=== PATIENT | female | born 1995 | race Hispanic/Latino ===

== ENCOUNTER 2017-01-11 15:05 | Observation (INO) | payer OTHER ==
[2017-01-11] MEDS ORDERED: Ondansetron HCl/PF 4 MG/2 ML Vial IVP PRN (18:56)
[2017-01-11] MEDS ORDERED: Acetaminophen 500 MG TAB PO PRN (18:56)
[2017-01-11] MEDS ORDERED: Promethazine HCl 25 MG/ML VIAL IM PRN (18:56)
[2017-01-11] MEDS ORDERED: Docusate 100 MG CAP PO PRN (18:56)
[2017-01-11 19:39] LABS: #Basophils 0.1 thou/uL (0.0-0.2); #Eosinphils 0.1 thou/uL (0.0-0.7); #Lymphocytes 2.3 thou/uL (1.20-3.40); #Monocytes 0.4 thou/uL (0.11-0.59); #Neutrophils 5.9 thou/uL (1.40-6.50); %Basophils 0.6 % (0.0-1.0); %Eosinophils 1.7 % (0.0-10.0); %Lymphocytes 25.9 % (21.0-51.0); %Monocytes 4.7 % (0.0-10.0); Hematocrit 36.7 % (36.0-47.0); Red Blood Cell (RBC) Count 4.24 mill/uL (4.20-5.40); White Blood Cell (WBC) Count 8.8 thou/uL (4.8-10.8)
--- NOTE | 2017-01-11 19:40 | PDOC.LDHP ---
Labor and Delivery H&P Chief complaint: other (elevated blood pressure and persistently elevated fasting blood sugar, chronic htn, concern for preeclampsia) HPI: 21 @ 21.4 presents as a direct admit from clinic after being noted to have elevated pressures in clinic. She also has a h/o elevated blood sugars during and has been medication no-compliant. Likely pre- gestational diabetic. She denies any complications with this thus far and reports good movement. She denies headache, abdominal pain, decreased urinary op, changes in vision. Denies any other pmh. Family history is positive for DMII on mother's side. NKDA. Current gestational age (weeks): 21 Grav: 3 Para: 1 OB History Details: 1 previous cs 2/2 failure to progress Current complications: pregestational diabetes, hypertension, other Current medications: none Previous surgical history: low tranverse CS - Physical Exam General: NAD, resting Heart: RRR Lungs: nonlabored breathing Abdomen: gravid (Approx 5cm above umbilicus) Extremeties: trace edema - Assessment -chronic uncontrolled htn -pregestational diabetes -obesity -medication non-compliance - Plan Plan: other -: admit to for obs vital checks q4h start medications as indicated accuchecks QACHS diabetic diet r/o preeclampsia: cmp, cbc, 24 hr urine protein, urine protein/creatinine ratio , uric acid <Mac Larsen - Last Filed: 01/11/17 19:31> <Deedee Rice - Last Filed: 01/12/17 00:00> Allergies/Adverse Reactions: Allergies Allergy/AdvReac Type Severity Reaction Status Date / Time No Known Drug Allergies Allergy Verified 01/11/17 20:54 Attending Addendum - Attending Addendum I personally evaluated the patient and discussed the management with Dr. Larsen on 01/11/17. I agree with the History, Examination, Assessment and Plan documented above with any addition or exceptions noted below. Patient's BPs now 120s/80s. Has not met criteria for needing labetalol yet. Inital labs normal, with exception of mild hypokalemia. Will replete PO. 24 hour urine pending. May consider starting ASA. In addition, tonight's 2hPP glucose is 154, which is significantly elevated. If they remain elevated, may need to consider adding Metformin or Glipizide. <Deedee Rice - Last Filed: 01/12/17 00:00>
[2017-01-11 20:04] LABS: ALT (SGPT) 21 U/L (8-55); AST (SGOT) 17 U/L (5-34); Alkaline Phosphatase 93 U/L (40-150); Anion Gap 12 mmol/L (10-20); BUN (Urea Nitrogen) 7 mg/dL (7.0-18.7); Bilirubin, Total Less than 0.2 mg/dL (0.2-1.2); Calc. Creatinine Clearance 0 mL/min (70-130); Carbon Dioxide 22 mmol/L (22-29); Chloride 106 mmol/L (98-107); Estimated GFR-MDRD Greater than 90; Globulin 3.6 g/dL (2.4-3.5); Protein, Total 7.2 g/dL (6.0-8.3)
[2017-01-11] MEDS ORDERED: Potassium Chloride 20 MEQ TAB PO SCH (20:45)
[2017-01-11 20:53] VITALS: BMI 42.5
[2017-01-11 21:21] LABS: Bilirubin Negative (Negative); Blood, Urine Negative (Negative); Glucose, Urine (Dipstick) Negative (Negative); Ketone, Urine Negative (Negative); Nitrite Negative (Negative); Protein, Urine (Dipstick) Negative (Neg-Trace)
[2017-01-11 21:23] LABS: Bacteria/HPF None Seen HPF (None Seen); Hyaline Casts/LPF 0-3 HYALINE CAST LPF (0-3 Hyaline); RBC/HPF 0-3 HPF (0-3); Squamous Epithelial 0-3 HPF (0-3); WBC/HPF 0-3 HPF (0-3)
--- NOTE | 2017-01-12 06:10 | PDOC.LDPN ---
Labor & Delivery Progress Note - Subjective Subjective: other (21 @ 21.4 presents as a direct admit from clinic after being noted to have elevated pressures in clinic. She also has a h/ o elevated blood sugars during and has been medication no-compliant. Complications: Gestational Hypertension. Diabetes? Denies any other pmh. Family history is positive for DMII on mother's side. NKDA.) - Objective Vital signs reviewed and normal: yes General: NAD, resting Other exam findings: RRR, no murmurs/rubs/gallops; CTAB, no wheezing; soft nontender no dist - Assessment (1) Hypertension affecting Code(s): O16.9 - UNSPECIFIED MATERNAL HYPERTENSION, UNSPECIFIED TRIMESTER Current Visit: Yes Status: Acute (2) Pre-diabetes Code(s): R73.03 - PREDIABETES Current Visit: Yes Status: Acute -: @ 21.4wk with chronic hypertension not on medication and with prediabetes presented to [facility] with systolic bp in the 160s, and protien in urine, also with noncompliance of checking blood glucose at home, admitted here for PreEclampsia workup and further management of pt's hypertension and prediabetes. 1.)Chronic Hypertension, with concern for superimposed PreEclampsia, with controlled normal pressures overnight without requiring medication: 24hr urine protein pending Urine protein/cr: .07 Pt's platelets and LFTs are wnl No complaint of headache Advised pt to take a baby aspirin daily 2.)Prediabetes- Ordered fasting blood glucose and 2 hour post prandial blood glucose checks Advised pt to check blood glucose at home at these times Will consider metformen if pt's blood glucose persistently elevated Advised pt to keep a log of blood sugars Will have dietitian come see the pt to discuss dietary options in 3.)Obesity Educated pt on diet and exercise Will have dietitian come by to discuss healthy consistent carb diet in Dispo: Can discharge after 24 hour urine protein collected. <Corina De Paz - Last Filed: 01/12/17 11:00> -: Agree with the assessment and plan as above-- 1) Chronic HTN- BPs well controlled here. No signs of superimposed PreE. Pending 24 hr urine collection for baseline protein. 2) Prediabetes- a1c c/w pre-diabetes and concern for development of gestational DM. Continue to monitor FBG & 2hr PP. Pending veneer taper referral and diabetic teaching. Recommend diabetic diet and will consider addition of meds, but anticipate future need for medication to control BS. 3) obesity- counseling as above. 4) h/o marijuana abuse- will check UDS. Pt seen & examined w/ Dr. Banerjee. <Jeanne Araiza - Last Filed: 01/12/17 11:26> Attending Addendum - Attending Addendum I personally evaluated the patient and discussed the management with Dr. De Paz and Jose G I agree with the History, Examination, Assessment and Plan documented above with any addition or exceptions noted below. 21 yo female at 21.4 wks by 13.6 wk sono admitted for evaluation of persistently elevated BP in clinic. HD#1 Patient doing well. No acute changes overnight. Remains asymptomatic. BP WNL. No evidence of mild or severe range pressure. Labs WNL at present. No evidence of proteinuria on pro/cr ratio, however, 24 hour protein pending. Glucose intolerance with A1c of 6.1% on IOB visit. Accu checks not accurate. Will change to fasting and 2 hours pp. Repeat A1c improved to 5.8%. DM education today. Will likely progress to GDM due to evidence of severe glucose intolerance. Will likely need medications to control. Expressed importance of diet and exercise. Dispo: Continue BP and glucose monitoring as well as collection of 24 hour urine. Will likely be able to be discharged home later today. TamikaMD <Melba Banerjee - Last Filed: 01/12/17 13:05>
[2017-01-12 06:45] LABS: Hemoglobin A1c 5.8 % (4.0-6.0)
[2017-01-12] MEDS ORDERED: Aspirin 81 mg Enteric Coated Tablet PO SCH (09:30)
[2017-01-12 11:20] LABS: Amphetamine Not Detected (NotDetected); Methadone Not Detected (NotDetected); Methamphetamine Not Detected (NotDetected)
[2017-01-12 20:57] LABS: Collection Duration 24 hrs
[2017-01-12 22:51] LABS: Protein, Urine Less than 10 mg/dL (1-14)
--- NOTE | 2017-01-13 07:00 | PDOC.PP ---
Post Progress Note Post Day #: 6 PO intake tolerated: yes Flatus: yes Ambulation: yes Vital Signs (12 hours) Temp Pulse Resp BP BP BP Pulse Ox 01/13/17 05:00 98.7 F 80 18 107/56 L 107/56 L 01/13/17 00:00 98.3 F 73 18 131/62 131/62 01/12/17 20:00 98.7 F 83 18 129/65 129/65 99 Weight Weight 116.12 kg - Physical Examination General: NAD Cardiovascular: no m/r/g, RRR Respiratory: clear to auscultation bilaterally, non-labored breathing Abdominal: + bowel sounds, no distention Neurological: no gross focal deficits Psychiatric: A&Ox3, normal affect Result Diagrams: 01/11/17 19:29 01/11/17 19:29 (1) Hypertension affecting Code(s): O16.9 - UNSPECIFIED MATERNAL HYPERTENSION, UNSPECIFIED TRIMESTER Status: Acute (2) Pre-diabetes Code(s): R73.03 - PREDIABETES Status: Acute (3) Obesity Code(s): E66.9 - OBESITY, UNSPECIFIED Status: Acute (4) History of cannabis abuse Code(s): Z87.898 - PERSONAL HISTORY OF OTHER SPECIFIED CONDITIONS Status: Acute
--- NOTE | 2017-01-13 07:04 | PDOC.LDPN ---
Addendum entered and electronically signed by Jeanne Araiza DO 01/13/17 11:33: Agree with assessment and plan by my development intern-- Additionally, pt counseled at length regarding options for management of her glucose intolerance at this time. She was given the option of insulin, metformin and diet/exercise and now desires diet and exercise. Counseled during visit, but will re-consult capital campaign fundraiser regarding review of example diets, carb counting, etc; also recommended 30-45 min of moderate exercise qd. Pt made appt for f/u at [facility] in 4 days to bring in blood glucose log with FBG & 2hr PP. Will make further management as outpatient. Regarding her HTN, likely at a wander due to gestational age. No signs of proteinuria, CKD or superimposed features of preeclampsia. Counseled regarding monitoring of BPs at home. Started on ASA 81mg for preE ppx. Stable for d/c home this pm with adequate outpt follow up. Jeanne Araiza DO ([email or web address]) Original Note: Labor & Delivery Progress Note - Subjective Subjective: comfortable, other (No acute events overnight; resting comfortably in bed; VSS (bp ranging from 107-131/56-73)) - Objective Vital signs reviewed and normal: yes (107-131/56-73 BP range overnight; fasting glusose: 105; postprandial:102,86,90) General: NAD, resting Uterine fundus: non tender (Abdomen: Soft, nontender, no distention, positive bowel sounds) Other exam findings: CV: RRR, normal s1 and s2, no m/r/g; Resp: CTAB, no wheezing/ronchi/rales - Assessment (1) Hypertension affecting Code(s): O16.9 - UNSPECIFIED MATERNAL HYPERTENSION, UNSPECIFIED TRIMESTER Status: Acute (2) Pre-diabetes Code(s): R73.03 - PREDIABETES Status: Acute (3) Obesity Code(s): E66.9 - OBESITY, UNSPECIFIED Status: Acute (4) History of cannabis abuse Code(s): Z87.898 - PERSONAL HISTORY OF OTHER SPECIFIED CONDITIONS Status: Acute -: @ 21.4wk by 13.6wk US with chronic hypertension not on medication and with prediabetes presented to [facility] with systolic bp in the 160s, and protien in urine , also with noncompliance of checking blood glucose at home, admitted here for PreEclampsia workup and further management of pt's hypertension and prediabetes. Hosp day: 3 1.)Chronic Hypertension, controlled without requiring medication: BP overnight: 107-131/56-73 24hr urine protein<10 Urine protein/cr: .07 Pt's platelets and LFTs are wnl No complaint of headache Advised pt to take a baby aspirin daily No evidence of superimposed PreEclampsia during this hospital stay, despite persistently elevated pressures in [facility]. Recommend taking blood pressure readings at home and keeping a log. 2.)Prediabetes, diet controlled. Fastin (Goal ,95); Postprandials: 102,86,90 (Goal<120) Advised pt to check blood glucose at home at these times Will consider metformin if pt's blood glucose persistently elevated and to keep a log of sugars at home. Recommend 500mg qhs metformin and titrate based on blood glucose readings at home. 3.)Obesity Educated pt on diet and exercise Will have dietitian come by to discuss healthy consistent carb diet in 4.)Hx of Marijuana abuse UDS-negative Dispo: Discharge home today with close follow-up at [facility] <Corina De Paz - Last Filed: 01/13/17 08:45> Attending Addendum - Attending Addendum I personally evaluated the patient and discussed the management with Dr. De Paz and Jose G I agree with the History, Examination, Assessment and Plan documented above with any addition or exceptions noted below. 21 yo female at 21.5 wks by 13.6 wk sono admitted for evaluation of persistently elevated BP in clinic. HD#2 Patient doing well. No acute changes overnight. Remains asymptomatic. cHTN: BP WNL. No evidence of mild or severe range pressure. Labs WNL. No evidence of proteinuria. Glucose intolerance with A1c of 6.1% on IOB visit: Accu checks now reflective of gestational diabetes. Repeat A1c improved to 5.8%. DM education yesterday but patient very noncompliant. Reported to capital campaign fundraiser she did not want to monitor her calories. Expressed importance of diet and exercise once again with patient. Readdressed risk. Discussed treatment options and R/B/A. Patient has follow up appointment at [facility] on Tuesday. Will bring log. Understands if values not at goal will need to start medications. Patient expressed greater understanding. Would like to talk to dietary again if able. Discussed she has already gained 12 lbs this and that it would be beneficial to her and her baby that she not gain anymore. Dispo: Discharge. Spent greater than 30 minutes. Chivo <Melba Banerjee - Last Filed: 01/13/17 15:36>
[2017-01-13] MEDS ORDERED: Aspirin 81 mg Enteric Coated Tablet PO SCH (09:00)
[2017-01-13 12:34] VITALS: BP 130/64; TEMP 98.3
--- NOTE | 2017-01-14 13:52 | DIS-2 ---
DATE OF ADMISSION: 01/11/2017 DATE OF DISCHARGE: 01/13/2017 ADMITTING RESIDENT: Mac Larsen D.O. ADMITTING ATTENDING: Deedee Rice D.O. DISCHARGE RESIDENT: Corina De Paz M.D. DISCHARGE ATTENDING: Melba Banerjee M.D. CONSULTS: Dietitian. PRIMARY DIAGNOSES: 1. Prediabetes, diet controlled. 2. Chronic hypertension, diet and exercise controlled. SECONDARY DIAGNOSES: 1. Obesity. 2. History of marijuana use. DISCHARGE MEDICATIONS: 1. Aspirin 81 mg oral daily. 2. vitamins 1 tablet oral daily. HISTORY OF PRESENT ILLNESS AND HOSPITAL COURSE: A 21-year-old at 21 and 4 weeks by 13.6 weeks ultrasound, presents with chronic hypertension, not on medication and prediabetes after reportedly having systolic blood pressures in the 160s at Clinic and protein in her urine. The anna carr was found to be noncompliant with checking her blood sugars at home and was admitted to the hospit al for preeclampsia workup and for further management of her hypertension and prediabetes. 1. Chronic hypertension, currently controlled without requiring medication. As mentioned above, th e patient was in the 160s when having her blood pressure checked at the Clinic. The anna carr's blood pressures overnight in the hospital have ranged from the one teens to 130s systolic over 5 0s to 70s diastolic. The patient had urine protein and creatinine drawn for a preeclampsia workup. The patient's urine protein to creatinine ratio was 0.07. The patient's platelets and LFTs were wi thin normal limits. The patient denies any complaints of headache. She was started on a baby aspir in daily. During this hospital stay, there is no evidence of superimposed preeclampsia on her chron ic hypertension despite her persistently elevated blood pressures at the Clinic. It was re commended that the patient take her blood pressure readings at home and keep a log. It was also rec ommended that the patient exercise and eat healthier and she would rather try to control her blood p ressure with diet and exercise versus starting a medication at this time. 2. Prediabetes, diet controlled. The patient's fasting blood sugar in the hospital was 105 with a goal of 95. Her postprandials are 102, 86 and 90 with a goal of less than 120. The patient was fou nd to have elevated fasting blood sugars. The patient was educated on taking insulin versus startin g metformin. The patient declined both at this time. She would like a trial of diet controlled of controlling her diabetes with her diet first. The dietitian visited with the patient during the [facility] stay on healthy choices for her and the baby that would be low carbohydrates options. The pat ient was educated on the severity of having elevated sugars while in . It is recommended o r it was discussed with the patient that if diet does not adequately control her diabetes, then it w ould be of benefit to initiate insulin or metformin, the patient understood. The patient also agree d to check her blood sugar at home fasting and postprandials 2 hours after each meal. 3. Obesity. The patient was educated on diet and exercise per the physicians as well as the dietit mouna. The importance of eating a low carbohydrate diet was emphasized, the patient understood. 4. History of marijuana abuse. The patient's urine drug screen was negative. DISPOSITION: Stable. DISCHARGE INSTRUCTIONS: 1. Location: Home. 2. Diet: Diabetic diet, low carbohydrates, low salt diet, heart healthy. 3. Activity: As tolerated. Recommend 30 minutes of walking daily. FOLLOWUP: Recommended that the patient to follow up with her care provider in 1 to 2 weeks.
== END 2017-01-13 15:05 | disposition home or self-care (01) ==
LOC: INTOOBSV 18:11 → 3SW 18:11
PROVIDERS: ADMIT Student in an Organized Health Care Education/Training Program; ATTEND Student in an Organized Health Care Education/Training Program
DX: O99.89 Other specified diseases and conditions complicating pregnancy, childbirth and the puerperium (principal); R73.03 Prediabetes; O16.2 Unspecified maternal hypertension, second trimester; O99.212 Obesity complicating pregnancy, second trimester; Z68.41 Body mass index [BMI] 40.0-44.9, adult; Z3A.21 21 weeks gestation of pregnancy; Z79.899 Other long term (current) drug therapy; Z91.19 Patient's noncompliance with other medical treatment and regimen; Z98.890 Other specified postprocedural states; Z86.59 Personal history of other mental and behavioral disorders
CPT/HCPCS: 36415; 36416; 80053; 80306; 81001; 82570; 83036; 84156; 84550; 85025; G0378

== ENCOUNTER 2017-05-04 09:41 | Inpatient (IN) | payer OTHER ==
[2017-05-04 10:18] VITALS: BMI 44.9
[2017-05-04] MEDS ORDERED: FLU VACC QS2017-18 36 mo. & older 0.5 ML SYRINGE IM ONE (10:30)
[2017-05-04] MEDS ORDERED: Promethazine HCl 25 MG/ML VIAL IM PRN (10:30)
[2017-05-04] MEDS ORDERED: LR / Pitocin 40 units/1000 ml 1,000 ML IV PRN (10:52)
[2017-05-04] MEDS ORDERED: Ibuprofen 800 MG TAB PO PRN (10:52)
[2017-05-04] MEDS ORDERED: HYDROcodone/Acetaminophen 5/325 mg Tablet PO PRN ×2 (10:52)
[2017-05-04] MEDS ORDERED: Lidocaine 1% (PF) 30 ML VIAL SC PRN (10:52)
--- NOTE | 2017-05-04 11:00 | PDOC.LDHP ---
Labor and Delivery H&P Chief complaint: loss of fluid, other (GDM on orals) HPI: Hx CS X 1 desires , patient of Sergo. First CS for Arrest of Dilation at 8cm by Dr Long. Here for LOF at 37 weeks. GBS pos. Please see handwritten note in chart. Current gestational age (weeks): 37 Dating criteria: last menstrual period Grav: 3 Para: 1 (SAB 1) Current complications: gestational diabetes (on oral glyberide 2.5mg TID...accucheck here was 143 fasting) Abnormal US findings: No Current medications: other (glyberide) Previous surgical history: low tranverse CS (FTP) Allergies/Adverse Reactions: Allergies Allergy/AdvReac Type Severity Reaction Status Date / Time No Known Drug Allergies Allergy Verified 05/04/17 10:18 - Physical Exam Vital signs reviewed and normal: yes (120/50) General: NAD Heart: RRR Lungs: CTAB Abdomen: gravid FHT: category 1 - Vaginal Exam cm dilated: 2 - Assessment L&D Assessment: labor (SROM) - Plan Plan: admit to L&D, GBS antibiotic prophylaxis, informed consent obtained, other (Follow up dsticks in labor, notify Sergo.)
[2017-05-04] MEDS: Lactated Ringer's 1,000 ML IV SCH ×2 (11:10→19:13)
[2017-05-04 11:30] LABS: Hemoglobin 12.1 g/dL (12.0-16.0); Mean Corpuscular HGB CONC 33.4 g/dL (32.0-36.0); Mean Corpuscular Hemoglobin 27.5 pg (27.0-31.0); Mean Corpuscular Volume 82.1 fl (81.0-99.0); Mean Platelet Volume 7.6 fL (7.4-10.4); Platelet Count 261 thou/uL (130-400); Red Blood Cell (RBC) Count 4.42 mill/uL (4.20-5.40); White Blood Cell (WBC) Count 7.3 thou/uL (4.8-10.8)
[2017-05-04] MEDS ORDERED: Penicillin G Potassium 5 MILL.UNITS in Sodium Chloride 0.9% 100 ML IVPB SCH (11:30)
[2017-05-04 12:14] LABS: Syphilis Antibody Nonreactive (Nonreactive); Syphilis Antibody Index 0.04 S/CO (<1.00 Non-Reactive)
[2017-05-04 12:15] LABS: HBSAg Index 0.13 S/CO (0-0.99); HIV (1/2) Antibody/Antigen Non-Reactive (NonReactive); HIV 1/2 INDEX 0.08 S/CO (<1.00); Hep B Surf Ag Non-Reactive S/CO (NonReactive)
[2017-05-04] MEDS ORDERED: LR 500 ML/Oxytocin 10 units 500 ML IV SCH (12:30)
--- NOTE | 2017-05-04 13:05 | PDOC.LDPN ---
Labor & Delivery Progress Note - Subjective Subjective: comfortable - Objective Vital signs reviewed and normal: yes General: NAD Uterine fundus: non tender Dilation: 2 Effacement: 75% Station: -3 FHT: category 1 [place] contractions every: q 4min IUPC placed: yes FSE placed: yes (by RN) -: Pt desires TOLAC, prior CS for FTP at 7cm, baby was 7lb4oz. Discussed recurring indication decreases chance as successful , other factors decreasing her success are obesity and uncontrolled A2GDM. EFW 3500gm on sono. Pt still desires TOLAC after lengthy discussion of these factors against her having a vaginal delivery. Understands risk of uterine rupture and increased risk with use of pitocin and obesity. Will start pitocin since no change in 3hr and inadequate contractions, 1x1 max of 10. Pt declines epidural , disc advantage of having epidural in event of emergency. Pt will consider. GBS pos on PCN. Accuchecks q2h, last 114.
[2017-05-04] MEDS: Penicillin G 2.5 MILL.units 2.5 MILL.UNITS in Premix Bag 1 BAG IVPB SCH ×2 (15:56→20:06)
[2017-05-04] MEDS ORDERED: Ondansetron HCl/PF 4 MG/2 ML Vial ONE ×2 (16:23→23:30)
[2017-05-04] MEDS ORDERED: Lidocaine 2% MPF 10 ML AMP (For Epidural Use) ONE (16:23)
[2017-05-04] MEDS ORDERED: Lidocaine 1% PF 5 ML VIAL ONE (16:23)
[2017-05-04] MEDS ORDERED: Naloxone HCl 0.4 mg/ml Vial IV PRN (21:08)
[2017-05-04] MEDS ORDERED: Bupivacaine 0.5% 20 ML, Fentanyl 400 MCG in Sodium Chloride 0.9% 72 ML EPIDURAL SCH (21:15)
[2017-05-04] MEDS ORDERED: Bicitra 30 ML UDCUP ONE (23:09)
[2017-05-04] MEDS ORDERED: CEFAZOLIN/Water 2 GM/20 ML SYRINGE ONE (23:09)
--- NOTE | 2017-05-04 23:27 | PDOC.EVN ---
Event Note - Event Note Event Note: CS Assist Note: Asked by Dr Vogt to assist with repeat CS on a patient attempting TOLAC. Please see full noted by Dr Trotter. I was scrubbed in and assisted for the procedure. Repeat LTCS under gauri. No complications noted. Vigorous . Zmax added to standard antibiotic prophylaxis.
--- NOTE | 2017-05-04 23:28 | PDOC.LDPN ---
Labor & Delivery Progress Note - Subjective Subjective: comfortable - Objective Vital signs reviewed and normal: yes General: NAD Uterine fundus: non tender Dilation: 5 Effacement: 90% Station: 0 FHT: category 1 [place] contractions every: q 2-3 min - Assessment (1) Arrest of dilation, delivered, current hospitalization Code(s): O62.1 - SECONDARY UTERINE INERTIA Current Visit: Yes Status: Acute (2) Previous delivery, delivered Code(s): O34.219 - MATERNAL CARE FOR UNSP TYPE SCAR FROM PREVIOUS DEL Current Visit: Yes Status: Acute (3) Gestational diabetes mellitus in childbirth Code(s): O24.429 - GESTATIONAL DIABETES MELLITUS IN CHILDBIRTH, UNSP CONTROL Current Visit: Yes Status: Acute -: Pt has progressed over the day very slowly, still in latent labor and unchanged over last 4hr despite adequate MVU. Dispo for RCS due to arrest of dilation. FHT reassuring. Disc risks/benefits and pt wishes to proceed. All questions answered.
[2017-05-04] MEDS ORDERED: Oxytocin 10 UNITS/ML VIAL ONE (23:30)
[2017-05-04] MEDS ORDERED: Morphine PF 1 MG/ML SYR ONE (23:30)
[2017-05-04] MEDS ORDERED: Bicitra 30 ML UDCUP PO SCH (23:45)
[2017-05-04] MEDS ORDERED: CEFAZOLIN/Water 2 GM/20 ML SYRINGE SLOW IVP SCH (23:45)
[2017-05-04] MEDS ORDERED: Azithromycin 500 MG in Sodium Chloride 0.9% 250 ML 250 ML IVPB SCH (23:45)
--- NOTE | 2017-05-05 00:22 | PDOC.OPDEL ---
OB Operative/Delivery Note Delivery Dr/Surgeon: Sergo Assist: Lowe Pre-Delivery Diagnosis: arrest of dilation, ruptured membrane, other (FAILED TOLAC) Procedure/Post Delivery Dx: repeat low transverse CS Weeks gestation: 37 Anesthesia: epidural - Findings A Sex: male Weight: 8 lb 1 oz - 1 min: 9 - 5 min: 9 - Additional Findings/Plan Placenta delivered: spontaneous findings: low transverse hysterotomy without extension, normal uterus, normal tubes, normal ovaries Estimated blood loss: 500 Post delivery plan: routine recovery
[2017-05-05] MEDS ORDERED: diphenhydrAMINE 50 MG/ML VIAL IVP PRN (00:29)
[2017-05-05] MEDS ORDERED: Ketorolac Tromethamine 30 MG/ML VIAL IVP PRN (00:29)
[2017-05-05] MEDS ORDERED: HYDROmorphone 2 MG/ML VIAL SLOW IVP PRN (00:29)
[2017-05-05] MEDS ORDERED: Promethazine HCl 25 MG/ML VIAL IM PRN ×2 (00:29→02:25)
[2017-05-05] MEDS ORDERED: Ondansetron HCl/PF 4 MG/2 ML Vial IVP PRN ×3 (00:29→02:25)
[2017-05-05] MEDS ORDERED: Naloxone HCl 0.4 mg/ml Vial IVP PRN ×2 (00:29)
[2017-05-05] MEDS ORDERED: Eucerin (Mineral Oil/Petrolatum,White) 30 gm Jar TOP PRN (00:29)
[2017-05-05] MEDS ORDERED: Meperidine HCl/PF 25 MG/ML VIAL SLOW IVP PRN (00:29)
[2017-05-05] MEDS ORDERED: Promethazine HCl 25 MG SUPP PR PRN (00:29)
[2017-05-05] MEDS ORDERED: Naloxone HCl 0.4 mg/ml Vial IV PRN (00:29)
[2017-05-05] MEDS ORDERED: Communication Order-Pharmacy FS SCH (00:30)
[2017-05-05] MEDS ORDERED: Ketorolac Tromethamine 30 MG/ML VIAL IVP SCH (00:30)
[2017-05-05] MEDS ORDERED: Bupivacaine 0.5% 20 ML, Fentanyl 400 MCG in Sodium Chloride 0.9% 72 ML EPIDURAL SCH (00:45)
[2017-05-05] MEDS ORDERED: Promethazine HCl 25 MG/ML VIAL ONE (01:12)
[2017-05-05] MEDS ORDERED: Ketorolac Tromethamine 30 MG/ML VIAL ONE (02:16)
[2017-05-05] MEDS ORDERED: Lactated Ringer's 1,000 ML IV SCH (02:25)
[2017-05-05] MEDS ORDERED: Zolpidem Tartrate 5 MG TAB PO PRN (02:25)
[2017-05-05] MEDS ORDERED: Bisacodyl 10 MG SUPP PR PRN (02:25)
[2017-05-05] MEDS ORDERED: HYDROcodone/Acetaminophen 5/325 mg Tablet PO PRN ×3 (02:25→02:50)
[2017-05-05] MEDS ORDERED: Lanolin Ointment 7 GM TUBE TOP PRN (02:25)
[2017-05-05] MEDS ORDERED: Acetaminophen 325 MG TAB PO PRN (02:25)
--- NOTE | 2017-05-05 03:30 | OP ---
DATE OF OPERATION: 05/04/2017 PREOPERATIVE DIAGNOSES: 1. Intrauterine at 37 weeks 5 days. 2. Term rupture of membranes. 3. Prior section x1, failed trial of labor after section. 4. Arrest of dilation. 5. Gestational diabetes. 6. Morbid obesity. POSTOPERATIVE DIAGNOSES: 1. Intrauterine at 37 weeks 5 days. 2. Term rupture of membranes. 3. Prior section x1, failed trial of labor after section. 4. Arrest of dilation. 5. Gestational diabetes. 6. Morbid obesity. PROCEDURE: Repeat low transverse section via Pfannenstiel skin incision. SURGEON: Yudelka Trotter M.D. LINGO CLEANER: Alonzo Lowe M.D. ANESTHESIA: Epidural. ESTIMATED BLOOD LOSS: 500 mL. INTRAVENOUS FLUIDS: 750 mL crystalloid. URINE OUTPUT: 300 mL of clear urine. COMPLICATIONS: None. DRAINS: Tena catheter. PATHOLOGY: None. FINDINGS: Male , cephalic presentation. Apgars 9/9 and weight 8lb 1 oz. Hysterotomy without extension. Normal uterus, ovaries, and tubes bilaterally. OPERATIVE TECHNIQUE: Patient was taken to the operating room where epidural anesthesia was found to be adequate. Patient was prepped and draped in a sterile fashion in the dorsal supine position with leftward tilt. After ensuring adequacy of anesthesia, Pfannenstiel skin incision was made and carried down to the underlying subcutaneous tissue with the knife. The fascia was nicked in the midline with a knife, carried laterally with the Cotton scissors. The superior aspect of the fascia was tented with 2 Kochers and dissected off the rectus with the Mayos. The inferior aspect of the fascia was tented with 2 Kochers and dissected off the rectus down to the pubic symphysis. The peritoneum was bluntly entered into the rectus and peritoneum were manually retracted. The Adan O retractor was placed. The bladder flap was created with the Metzenbaums. Lower uterine segment was incised in a transverse fashion and extended with the Meehan maneuver. The infant's head was brought to the hysterotomy and delivered atraumatically followed by the body. The infant's cord was clamped, infant handed to awaiting kaci team. The placenta was allowed to spontaneously deliver. The uterus was exteriorized, cleared of all clots and debris, and replaced back in the abdomen, lapped out the posterior cul-de-sac, and the hysterotomy was repaired with #1 Monocryl in running locking fashion. Hemostasis was noted. Irrigation of the pelvis was performed and suctioned, and again hysterotomy was noted to be hemostatic. The Adan O retractor was removed out of the abdomen. The rectus muscles were examined and noted to be hemostatic. The fascia was reapproximated with an 0 PDS x2 sutures with excellent reapproximation. The subcutaneous tissue was irrigated and cauterized of any bleeders and reapproximated in 2 layers of 2-0 plain gut in a running fashion. The skin was closed with 4-0 Monocryl in subcuticular fashion and Dermabond was applied. The patient tolerated procedure well. Sponge, lap, and needle counts were correct x2. The patient was taken to the recovery room in stable condition. Patient received Ancef 2 grams prior to the procedure and azithromycin 500 mg IV postprocedure. MTDD
[2017-05-05] MEDS: Penicillin G 2.5 MILL.units 2.5 MILL.UNITS in Premix Bag 1 BAG IVPB SCH (03:34)
[2017-05-05] MEDS ORDERED: LR / Pitocin 40 units/1000 ml 1,000 ML IV SCH (04:00)
[2017-05-05] MEDS: Simethicone Chewable 80 MG TAB PO PRN ×2 (05:39→18:14)
[2017-05-05 06:15] LABS: Hemoglobin 10.6 g/dL (12.0-16.0); Mean Corpuscular HGB CONC 32.7 g/dL (32.0-36.0); Mean Corpuscular Hemoglobin 26.9 pg (27.0-31.0); Mean Corpuscular Volume 82.1 fl (81.0-99.0); Platelet Count 230 thou/uL (130-400); Red Blood Cell (RBC) Count 3.95 mill/uL (4.20-5.40); White Blood Cell (WBC) Count 10.7 thou/uL (4.8-10.8)
--- NOTE | 2017-05-05 08:43 | PDOC.PP ---
Post Progress Note Post Day #: 1 PO intake tolerated: yes Flatus: no Ambulation: no Vital Signs (12 hours) Temp Pulse Resp BP Pulse Ox 05/05/17 04:50 97.9 F 82 18 122/55 L 98 05/05/17 03:45 77 14 129/57 L 98 05/05/17 02:40 98.2 F 71 20 123/58 L 97 Weight Weight 270 lb - Physical Examination General: NAD Cardiovascular: RRR Respiratory: non-labored breathing Abdominal: no distention, appropriately TTP Fundus firm & at: umb Neurological: no gross focal deficits Psychiatric: normal affect Result Diagrams: 05/05/17 05:46 Additional Labs: Post Labs Blood Type O POSITIVE 05/04/17 11:14 Hep Bs Antigen Non-Reactive S/CO (NonReactive) 05/04/17 11:18 (1) Arrest of dilation, delivered, current hospitalization Code(s): O62.1 - SECONDARY UTERINE INERTIA Status: Acute (2) Previous delivery, delivered Code(s): O34.219 - MATERNAL CARE FOR UNSP TYPE SCAR FROM PREVIOUS DEL Status: Acute (3) Gestational diabetes mellitus in childbirth Code(s): O24.429 - GESTATIONAL DIABETES MELLITUS IN CHILDBIRTH, UNSP CONTROL Status: Acute - Assessment/Plan VSSAF Doing well POD1 from [facility] for failed TOLAC, AOD Routine advances Hgb approrpriate postop, mild anemia d/t surgical blood loss. Rh pos RImm Cont postop care
[2017-05-05] MEDS ORDERED: Adacel (T-DAP) 0.5 ML VIAL IM ONE (09:00)
[2017-05-05] MEDS: Ferrous Sulfate 325 MG TAB PO SCH ×2 (10:05→18:16)
[2017-05-05] MEDS: Docusate Calcium (SURFAK) 240 MG CAP PO SCH ×2 (10:09→21:53)
[2017-05-05] MEDS: Prenatal Vitamin 1 TAB PO SCH (10:09)
[2017-05-05] MEDS: diphenhydrAMINE 25 MG CAP PO PRN ×4 (10:43→23:29)
[2017-05-05] MEDS: HYDROcodone/Acetaminophen 5/325 mg Tablet PO PRN ×2 (18:15→23:29)
[2017-05-05] MEDS: Ibuprofen 800 MG TAB PO SCH ×2 (18:16→21:53)
[2017-05-06] MEDS: Ibuprofen 800 MG TAB PO SCH ×3 (06:16→21:45)
[2017-05-06] MEDS: Prenatal Vitamin 1 TAB PO SCH (08:59)
[2017-05-06] MEDS: Ferrous Sulfate 325 MG TAB PO SCH ×2 (08:59→17:42)
[2017-05-06] MEDS: Docusate Calcium (SURFAK) 240 MG CAP PO SCH ×2 (08:59→21:45)
--- NOTE | 2017-05-06 10:07 | PDOC.PP ---
Post Progress Note Post Day #: 2 PO intake tolerated: yes Flatus: yes Ambulation: yes Vital Signs (12 hours) Temp Pulse Resp BP 05/06/17 08:39 97.7 F 64 20 86/50 L 05/06/17 04:00 98.7 F 96 20 131/78 05/06/17 00:00 98.7 F 96 20 Weight Weight 270 lb - Physical Examination General: NAD Cardiovascular: RRR Respiratory: non-labored breathing Abdominal: no distention, appropriately TTP Fundus firm & at: umb-2 Extremities: negative homans (B) Skin: CS incision dry & intact, no rash Neurological: no gross focal deficits Psychiatric: normal affect Result Diagrams: 05/05/17 05:46 Additional Labs: Post Labs Blood Type O POSITIVE 05/04/17 11:14 Hep Bs Antigen Non-Reactive S/CO (NonReactive) 05/04/17 11:18 (1) Arrest of dilation, delivered, current hospitalization Code(s): O62.1 - SECONDARY UTERINE INERTIA Status: Acute (2) Previous delivery, delivered Code(s): O34.219 - MATERNAL CARE FOR UNSP TYPE SCAR FROM PREVIOUS DEL Status: Acute (3) Gestational diabetes mellitus in childbirth Code(s): O24.429 - GESTATIONAL DIABETES MELLITUS IN CHILDBIRTH, UNSP CONTROL Status: Acute - Assessment/Plan VSSAF Doing well met all postop milestones Breastpumping Rh pos RImm Needs FU PP for DM screening. Cont postop care, home tomorrow
[2017-05-06] MEDS: HYDROcodone/Acetaminophen 5/325 mg Tablet PO PRN (17:46)
[2017-05-07] MEDS: Ibuprofen 800 MG TAB PO SCH ×2 (06:09→13:33)
[2017-05-07 08:11] VITALS: BP 114/58; TEMP 98.2
[2017-05-07] MEDS: HYDROcodone/Acetaminophen 5/325 mg Tablet PO PRN ×2 (08:41→13:34)
[2017-05-07] MEDS: Prenatal Vitamin 1 TAB PO SCH (08:41)
[2017-05-07] MEDS: Simethicone Chewable 80 MG TAB PO PRN (08:41)
[2017-05-07] MEDS: Docusate Calcium (SURFAK) 240 MG CAP PO SCH (08:41)
[2017-05-07] MEDS: Ferrous Sulfate 325 MG TAB PO SCH (08:42)
== END 2017-05-07 15:30 | disposition home or self-care (01) | DRG 765 ==
LOC: L&D/OP 09:41 → L&D 10:36 → 3SW 05-05 03:10
PROVIDERS: ADMIT Student in an Organized Health Care Education/Training Program; ATTEND Student in an Organized Health Care Education/Training Program
PROC: 10D00Z1 Extraction of Products of Conception, Low, Open Approach (ICD-10-PCS; principal; 2017-05-04)
DX: O34.219 Maternal care for unspecified type scar from previous cesarean delivery (principal); Z68.41 Body mass index [BMI] 40.0-44.9, adult; E66.01 Morbid (severe) obesity due to excess calories; Z3A.37 37 weeks gestation of pregnancy; Z37.0 Single live birth; O62.1 Secondary uterine inertia; O24.419 Gestational diabetes mellitus in pregnancy, unspecified control; O99.214 Obesity complicating childbirth; O99.820 Streptococcus B carrier state complicating pregnancy
CPT/HCPCS: 36415; 36416; 51702; 85027; 86780; 86850; 86900; 86901; 87340; 87389; 99285; J0456; J1885; J2001; J2274; J2405; J2540; J2550; J2590; J3010; J3490; J7050; J7120

== ENCOUNTER 2018-04-28 19:48 | Emergency (ER) | payer OTHER, SELFPAY ==
[2018-04-28 20:11] LABS: Bilirubin Negative (Negative); Blood, Urine Negative (Negative); Clarity CLEAR (Clear); Glucose, Urine (Dipstick) Negative (Negative); Leukocyte Negative (Negative); Nitrite Negative (Negative); Protein, Urine (Dipstick) Trace mg/dL (Neg-Trace); Specific Gravity, Urine 1.029 (1.002-1.036)
[2018-04-28 20:15] LABS: Pregnancy Test - Urine (BHCG) Negative (Negative); Pregu Control Background? CLEAR/WHITE (CLR/WHITE); Pregu Control Bar Appear? YES (CONTROL BAR); Specific Gravity 1.029 (1.002-1.036)
[2018-04-28] MEDS ORDERED: Ketorolac Tromethamine 30 MG/ML VIAL ONE (20:47)
[2018-04-28] MEDS ORDERED: Diazepam 5 MG TAB ONE (20:52)
== END 2018-04-28 21:41 | disposition home or self-care (01) ==
LOC: ERS 19:48
DX: M54.5 Low back pain (principal); F17.210 Nicotine dependence, cigarettes, uncomplicated
CPT/HCPCS: 81003; 81025; 96372; J1885

== ENCOUNTER 2019-03-28 19:46 | Emergency (ER) | payer SELFPAY ==
[2019-03-28] MEDS ORDERED: Dexamethasone 10 MG/ML VIAL ONE (20:34)
== END 2019-03-28 21:00 | disposition home or self-care (01) ==
LOC: ERS 19:46
DX: J02.9 Acute pharyngitis, unspecified (principal); F17.210 Nicotine dependence, cigarettes, uncomplicated
CPT/HCPCS: 87081; 87430; 99284; J1100

== ENCOUNTER 2019-07-14 17:13 | Emergency (ER) | payer SELFPAY ==
[2019-07-14] MEDS ORDERED: Ketorolac Tromethamine 30 MG/ML VIAL ONE (17:27)
[2019-07-14] MEDS ORDERED: Cyclobenzaprine 10 MG TAB ONE (17:27)
== END 2019-07-14 18:00 | disposition home or self-care (01) ==
LOC: ERS 17:13
DX: M54.42 Lumbago with sciatica, left side (principal); F17.210 Nicotine dependence, cigarettes, uncomplicated
CPT/HCPCS: 96372; 99283; J1885

== ENCOUNTER 2019-12-14 18:03 | Emergency (ER) | payer SELFPAY | END 2019-12-14 19:10 | disposition home or self-care (01) | LOC: ERS 18:03 | DX: B00.1 Herpesviral vesicular dermatitis (principal); F17.210 Nicotine dependence, cigarettes, uncomplicated | CPT/HCPCS: 99281 ==

== ENCOUNTER 2023-05-02 22:06 | Emergency (ER) | payer OTHER, SELFPAY ==
[2023-05-03] MEDS ORDERED: Clindamycin/D5W 600 mg/50 ml Premix Bag ONE (01:03)
[2023-05-03 01:42] LABS: #Basophils 0.1 thou/uL (0.0-0.2); #Eosinphils 0.1 thou/uL (0.0-0.7); #Monocytes 0.4 thou/uL (0.11-0.59); #Neutrophils 4.2 thou/uL (1.40-6.50); %Basophils 0.8 % (0.0-1.0); %Eosinophils 1.7 % (0.0-10.0); %Lymphocytes 34.8 % (21.0-51.0); %Monocytes 5.9 % (0.0-10.0); %Neutrophils 56.5 % (42.0-75.0); Hematocrit 38.3 % (36.0-47.0); Hemoglobin 11.9 g/dL (12.0-16.0); Mean Corpuscular HGB CONC 31.1 g/dL (32.0-36.0); Mean Corpuscular Hemoglobin 24.5 pg (27.0-31.0); Mean Platelet Volume 9.8 fL (7.4-10.4); Platelet Count 296 10x3/uL (130-400); RBC Distribution Width 16.5 % (11.5-14.5); Red Blood Cell (RBC) Count 4.85 mill/uL (4.20-5.40); White Blood Cell (WBC) Count 7.5 10x3/uL (4.8-10.8)
[2023-05-03 02:15] LABS: ALT (SGPT) 19 U/L (8-55); AST (SGOT) 18 U/L (5-34); Alkaline Phosphatase 95 U/L (40-110); Anion Gap 13 mmol/L (10-20); BUN (Urea Nitrogen) 11 mg/dL (7.0-18.7); Bilirubin, Total 0.2 mg/dL (0.2-1.2); Calc. Creatinine Clearance 0 mL/min (70-130); Carbon Dioxide 24 mmol/L (22-29); Chloride 103 mmol/L (98-107); Estimated GFR 109; Globulin 3.3 g/dL (2.4-3.5); Glucose 178 mg/dL (70-105); Potassium 3.7 mmol/L (3.5-5.1); Protein, Total 7.3 g/dL (6.0-8.3); Sodium 136 mmol/L (136-145)
[2023-05-03] MEDS ORDERED: Boostrix 0.5 ML (Tdap) VIAL (>/=7 yrs of age) ONE (03:27)
== END 2023-05-03 03:36 | disposition home or self-care (01) ==
LOC: ERS 22:06
DX: L08.9 Local infection of the skin and subcutaneous tissue, unspecified (principal); F17.210 Nicotine dependence, cigarettes, uncomplicated
CPT/HCPCS: 36415; 80053; 83605; 85025; 86140; 87070; 87077; 87205; 90715; J3490

== ENCOUNTER 2023-08-17 12:38 | Emergency (ER) | payer OTHER, SELFPAY ==
[2023-08-17] MEDS ORDERED: Acetaminophen 500 MG TAB ONE (12:49)
[2023-08-17] MEDS ORDERED: diphenhydrAMINE 50 MG/ML VIAL ONE (12:50)
[2023-08-17] MEDS ORDERED: Metoclopramide HCl 10 MG (2 mL) VIAL ONE (12:52)
[2023-08-17 13:29] LABS: Bacteria/HPF None Seen HPF (None Seen); Bilirubin Negative (Negative); Blood, Urine Negative (Negative); CAUTI Indications for Culture Fever or rigors; Clarity Clear (Clear); Glucose, Urine (Dipstick) Normal (Negative); Ketone, Urine Negative (Negative); Leukocyte Negative Leu/uL (Negative); Nitrite Negative (Negative); Protein, Urine (Dipstick) 30 mg/dL (Neg-Trace); RBC/HPF 0-3 HPF (0-3); Specific Gravity, Urine 1.017 (1.002-1.036); Squamous Epithelial 0-3 HPF (0-3); Urobilinogen Normal mg/dL (Less than 2); WBC/HPF 0-3 HPF (0-3)
[2023-08-17 13:30] LABS: Urine Culture Reflex No No
[2023-08-17 13:35] LABS: #Basophils Less than 0.03 10x3/uL (0.0-0.2); %Basophils 0.4 % (0.0-1.0); %Lymphocytes 13.1 % (21.0-51.0); %Neutrophils 76.1 % (42.0-75.0); Hematocrit 38.8 % (36.0-47.0); Hemoglobin 12.4 g/dL (12.0-16.0); Mean Corpuscular Hemoglobin 25.2 pg (27.0-31.0); Mean Corpuscular Volume 78.7 fL (78.0-98.0); Mean Platelet Volume 9.6 fL (7.4-10.4); Platelet Count 207 10x3/uL (130-400); RBC Distribution Width 17.3 % (11.5-14.5); Red Blood Cell (RBC) Count 4.93 mill/uL (4.20-5.40)
[2023-08-17 13:43] LABS: BHCG - Serum Negative (NEGATIVE); Pregs Control Background? CLEAR/WHITE (CLR/WHITE); Pregs Control Bar Appear? YES (CONTROL BAR)
[2023-08-17 13:51] LABS: ALT (SGPT) 81 U/L (8-55); AST (SGOT) 54 U/L (5-34); Albumin 3.8 g/dL (3.5-5.0); Alkaline Phosphatase 71 U/L (40-110); Anion Gap 14 mmol/L (10-20); BUN (Urea Nitrogen) 6 mg/dL (7.0-18.7); Bilirubin, Total 0.3 mg/dL (0.2-1.2); Calc. Creatinine Clearance 0 mL/min (70-130); Calcium 8.9 mg/dL (7.8-10.44); Carbon Dioxide 23 mmol/L (22-29); Chloride 102 mmol/L (98-107); Estimated GFR 108; Globulin 3.7 g/dL (2.4-3.5); Glucose 151 mg/dL (70-105); Potassium 3.7 mmol/L (3.5-5.1); Protein, Total 7.5 g/dL (6.0-8.3); Sodium 135 mmol/L (136-145)
[2023-08-17 15:04] LABS: Influenza A by NAA Not Detected (NotDetected); Influenza B by NAA Not Detected (NotDetected); SARS-CoV-2 NAA Rapid Test Not Detected (NotDetected)
== END 2023-08-17 16:02 | disposition home or self-care (01) ==
LOC: ERS 12:38
DX: R51.9 Headache, unspecified (principal); B34.9 Viral infection, unspecified; F17.210 Nicotine dependence, cigarettes, uncomplicated
CPT/HCPCS: 71045; 80053; 81001; 83605; 84443; 84703; 85025; 96365; 96375; J1200; J2765